=== PATIENT | female | born 1960 | race African-American/Black ===

== ENCOUNTER 2021-12-07 13:06 | Emergency (ER) | payer MEDICARE ==
[~2021-12-07] VITALS: Ht 167.6 cm; Wt 61.0 kg
[2021-12-07 13:14] VITALS: BP 138/77
[2021-12-07] MEDS ORDERED: TRAMADOL 50MG TABLET PO ONE (13:30)
[2021-12-07] MEDS ORDERED: IBUPROFEN 600MG TABLET PO ONE (15:00)
[2021-12-07] MEDS ORDERED: TRAMADOL 50MG TABLET PO NR (15:45)
[2021-12-07] MEDS ORDERED: METH-773 MT (16:32)
[2021-12-07] MEDS ORDERED: IBUP-2029 MT (16:32)
== END 2021-12-07 18:00 | disposition home or self-care (01) ==
LOC: ER 13:06
DX: M54.2 Cervicalgia (principal); M54.6 Pain in thoracic spine; R07.9 Chest pain, unspecified; M41.9 Scoliosis, unspecified; V43.52XA Car driver injured in collision with other type car in traffic accident, initial encounter; Y93.89 Activity, other specified; Y92.410 Unspecified street and highway as the place of occurrence of the external cause
CPT/HCPCS: 71045; 72070; 93005; 99285

== ENCOUNTER 2024-03-07 15:04 | Inpatient (IN) | payer MEDICARE ==
[~2024-03-07] VITALS: Ht 165.1 cm; Wt 78.9 kg
[~2024-03-07 15:04] MED LIST: IBUP-2029 MT; METH-773 MT
[2024-03-07 17:01] LABS: CLARITY URINE CLEAR (CLEAR); COLOR URINE YELLOW (YELLOW); GLUCOSE URINE 3+ (NEGATIVE); KETONES URINE NEGATIVE (NEGATIVE); LEUKOCYTE ESTERASE URINE NEGATIVE (NEGATIVE); NITRITE URINE NEGATIVE (NEGATIVE); OCCULT BLOOD URINE NEGATIVE (NEGATIVE); PH URINE 6.5 (4.5-8.0); PROTEIN URINE TRACE (NEGATIVE); SPECIFIC GRAVITY URINE 1.016 (1.005-1.030)
[2024-03-07 17:23] LABS: BASOPHILS % 0.1 % (0.0-2.0); DIFFERENTIAL COMMENT 0; EOSINOPHILS % 0.1 % (0.0-5.0); HEMOGLOBIN. 14.6 g/dL (12.0-16.0); LYMPHOCYTES % 7.8 % (20.0-50.0); MEAN CORPUSCULAR HEMOGLOBIN 34.1 pg (28.0-32.0); MEAN CORPUSCULAR VOLUME 100.2 fL (81.0-99.0); MEAN PLATELET VOLUME 7.2 fl (7.4-10.4); MONOCYTES % 5.4 % (2.0-8.0); NEUTROPHILS % 86.6 % (40.0-76.0); PLATELET 250 x1000/uL (130-400); RED BLOOD CELL COUNT 4.29 mill/uL (4.2-5.4); RED CELL DISTRIBUTION WIDTH 14.3 % (11.6-14.6); WHITE BLOOD COUNT 7.4 x1000/uL (4.5-11.0)
[2024-03-07 17:28] LABS: CHLORIDE 107 mEq/L (98-107); POTASSIUM 4.1 mEq/L (3.5-5.1); SODIUM 142 mEq/L (136-145)
[2024-03-07 17:29] LABS: CALCIUM 9.6 mg/dL (8.7-10.4); CARBON DIOXIDE 28 mEq/L (21-32)
[2024-03-07 17:33] LABS: BACTERIA URINE 2+; RBC URINE 0-2 /hpf (0-2); SQUAMOUS EPITHELIAL CELL URINE 1+ /lpf (RARE/1+); WBC URINE 0-2 /hpf (0-2)
[2024-03-07 17:34] LABS: GLUCOSE 110 mg/dL (70-105); INR 0.9; PARTIAL THROMBOPLASTIN TIME 21.5 sec (23.4-31.0); PROTHROMBIN TIME 10.1 sec (9.6-11.0); UREA NITROGEN BLOOD 14 mg/dL (9-23)
[2024-03-07 17:35] LABS: TROPONIN I HIGH SENSITIVITY 4 ng/L (3.0-34)
[2024-03-07 17:36] LABS: ALANINE AMINOTRANSFERASE 75 IU/L (10-49); ALBUMIN 3.9 g/dL (3.2-4.8); ASPARTATE AMINOTRANSFERASE 57 IU/L (<34)
[2024-03-07 17:37] LABS: BILIRUBIN TOTAL 0.5 mg/dL (0.1-1.0); PROTEIN TOTAL 6.4 g/dL (6.0-8.3)
[2024-03-07 17:59] LABS: BILIRUBIN DIRECT < 0.1 mg/dL (<=3.0); ETHANOL BLOOD < 10 mg/dL (<10)
[2024-03-07] MEDS ORDERED: NITROGLYCERIN 0.4MG TABLET SL SL PRN (20:45)
[2024-03-07] MEDS ORDERED: DOCUSATE SODIUM 100MG CAPSULE PO PRN (20:45)
[2024-03-07] MEDS ORDERED: ZOLPIDEM TARTRATE 5MG TABLET PO PRN (20:45)
[2024-03-07] MEDS ORDERED: ONDANSETRON HCL 4MG/2ML INJ IV PRN (20:45)
[2024-03-07] MEDS ORDERED: CLONIDINE 0.1MG TABLET PO PRN (20:45)
[2024-03-07] MEDS ORDERED: IPRATROPIUM/ALBUTEROL 0.5-3(2.5)MG/3ML NEB NEB PRN (20:45)
[2024-03-07] MEDS ORDERED: GUAIFENESIN 200MG/10ML SUGAR FREE UDC PO PRN (20:45)
[2024-03-07] MEDS ORDERED: ACETAMINOPHEN 325MG TABLET PO PRN (20:45)
[2024-03-07] MEDS: DEXT 5%/LACTATED RINGERS 1,000 ML IV SCH (20:45)
[2024-03-07] MEDS ORDERED: MAGNESIUM/ALUMINUM HYDROXIDE/SIMETHICONE 30ML UDC PO PRN (20:45)
[2024-03-07 21:12] LABS: IRON 89 ug/dL (50-170)
[2024-03-07 21:13] LABS: LDL CHOLESTEROL 112 mg/dL (5-100); TRIGLYCERIDE 163 mg/dL (0-150)
[2024-03-07 21:15] LABS: CHOLESTEROL 225 mg/dL (<200); HDL CHOLESTEROL 89 mg/dL (>65); TOTAL IRON BINDING CAPACITY 279 ug/dl (250-425)
[2024-03-07 21:18] LABS: FOLIC ACID (FOLATE) SERUM 17.53 ng/mL (>5.38); THYROID STIMULATING HORMONE 0.31 uIU/mL (0.55-4.78); VITAMIN B12 SERUM > 2000 pg/mL (211-911)
[2024-03-07 21:19] LABS: T4 FREE 1.66 ng/dL (0.89-1.76)
[2024-03-07] MEDS: AMLODIPINE 10MG TABLET PO SCH (21:47)
[2024-03-07] MEDS: FAMOTIDINE 20MG TABLET PO SCH (21:47)
[2024-03-07] MEDS: ENOXAPARIN 40MG/0.4ML SYR SUBCUT SCH (21:48)
[2024-03-07] MEDS: LEVETIRACETAM 500MG/5ML CUP PO SCH (21:52)
[2024-03-07 23:17] VITALS: BP 134/78; PULSE 94; RESP 18; TEMP 36.974
[2024-03-07] MEDS: DEXAMETHASONE 4MG/ML 1ML VIAL IV SCH (23:41)
[2024-03-08] VITALS: BP 134/78; PULSE 103; RESP 18; TEMP 37.00296; O2SAT 97
[2024-03-08 04:00] VITALS: BP 130/72; PULSE 83; RESP 14; TEMP 36.89184; O2SAT 97
[2024-03-08 07:42] LABS: CHLORIDE 109 mEq/L (98-107); POTASSIUM 4.1 mEq/L (3.5-5.1); SODIUM 143 mEq/L (136-145)
[2024-03-08 07:44] LABS: CARBON DIOXIDE 27 mEq/L (21-32)
[2024-03-08 07:50] LABS: CREATININE 0.7 mg/dL (0.6-1.0); GLUCOSE 143 mg/dL (70-105)
[2024-03-08 07:51] LABS: ALANINE AMINOTRANSFERASE 76 IU/L (10-49); ALBUMIN 4.4 g/dL (3.2-4.8); ASPARTATE AMINOTRANSFERASE 42 IU/L (<34); UREA NITROGEN BLOOD 12 mg/dL (9-23)
[2024-03-08 07:52] LABS: BILIRUBIN TOTAL 0.6 mg/dL (0.1-1.0); PHOSPHORUS 1.7 mg/dL (2.5-4.9)
[2024-03-08 07:53] LABS: PROTEIN TOTAL 6.8 g/dL (6.0-8.3)
[2024-03-08 08:00] VITALS: BP 147/87; PULSE 97; RESP 23; TEMP 36.83628; O2SAT 97
[2024-03-08] MEDS: ACETAMINOPHEN 325MG TABLET PO PRN (08:20)
[2024-03-08 08:41] LABS: BASOPHILS % 0.1 % (0.0-2.0); DIFFERENTIAL COMMENT 0; EOSINOPHILS % 0.1 % (0.0-5.0); HEMATOCRIT. 45.4 % (36.0-48.0); HEMOGLOBIN. 14.8 g/dL (12.0-16.0); LYMPHOCYTES % 13.1 % (20.0-50.0); MEAN CORPUSCULAR HEMOGLOBIN 32.7 pg (28.0-32.0); MEAN CORPUSCULAR HGB CONC 32.6 g/dL (31.0-37.0); MEAN CORPUSCULAR VOLUME 100.3 fL (81.0-99.0); MEAN PLATELET VOLUME 7.8 fl (7.4-10.4); MONOCYTES % 3.9 % (2.0-8.0); NEUTROPHILS % 82.8 % (40.0-76.0); PLATELET 253 x1000/uL (130-400); RED BLOOD CELL COUNT 4.52 mill/uL (4.2-5.4); RED CELL DISTRIBUTION WIDTH 14.6 % (11.6-14.6)
[2024-03-08 12:00] VITALS: BP 133/88; PULSE 95; RESP 21; TEMP 36.83628; O2SAT 97
[2024-03-08 16:00] VITALS: BP 130/82; PULSE 94; RESP 21; TEMP 36.83628; O2SAT 96
[2024-03-08 20:00] VITALS: BP 143/87; PULSE 106; RESP 19; TEMP 36.114; O2SAT 97
[2024-03-09] VITALS: BP 119/73; PULSE 85; RESP 13; TEMP 36.114; O2SAT 98
[2024-03-09 04:00] VITALS: BP 123/77; PULSE 76; RESP 9; TEMP 36.114; O2SAT 97
[2024-03-09 08:00] VITALS: BP 119/67; PULSE 78; RESP 10; TEMP 36.6696; O2SAT 98
[2024-03-09 12:00] VITALS: BP 121/71; PULSE 93; RESP 13; TEMP 36.83628; O2SAT 99
[2024-03-09 16:00] VITALS: BP 125/80; PULSE 80; RESP 14; TEMP 36.83628; O2SAT 98
[2024-03-09 19:52] VITALS: BP 145/85; PULSE 92; RESP 15; TEMP 36.3918
[2024-03-10] VITALS: PULSE 81; RESP 19; TEMP 36.55848; O2SAT 98
[2024-03-10 04:00] VITALS: BP 103/73; PULSE 81; RESP 20; TEMP 36.44736; O2SAT 99
[2024-03-10 08:00] VITALS: BP 120/85; PULSE 93; RESP 22; TEMP 36.55848; O2SAT 96
[2024-03-10 11:56] VITALS: BP 120/85; PULSE 93; TEMP 97.8; O2SAT 100
[2024-03-10 12:00] VITALS: BP 131/90; PULSE 95; RESP 15; TEMP 36.6696; TEMP 36.66960; O2SAT 98
== END 2024-03-10 14:20 | disposition home health service (06) | DRG 91 ==
LOC: ER 15:04 → EDBEDREQ 18:28 → 3WST 20:06
PROVIDERS: ADMIT Internal Medicine; ATTEND Internal Medicine
DX: G92.8 Other toxic encephalopathy (principal); G93.6 Cerebral edema; C71.9 Malignant neoplasm of brain, unspecified; I10 Essential (primary) hypertension; E11.9 Type 2 diabetes mellitus without complications; Z79.01 Long term (current) use of anticoagulants; Z92.21 Personal history of antineoplastic chemotherapy; Z79.4 Long term (current) use of insulin; Z92.3 Personal history of irradiation
CPT/HCPCS: 36415; 70553; 71045; 80048; 80053; 80061; 80076; 80320; 81003; 82607; 82746; 83036; 83540; 83550; 83735; 83880; 84100; 84439; 84443; 84484; 85025; 93005; 93306; 93970; 97161; 97166; 99285; J1100; J1650; J7121; G0480

== ENCOUNTER 2024-03-17 15:28 | Emergency (ER) | payer MEDICARE ==
[~2024-03-17] VITALS: Ht 167.6 cm; Wt 68.0 kg
[2024-03-17 15:36] VITALS: O2SAT 95
[2024-03-17] MEDS: LEVETIRACETAM 1000MG PREMIX 100 ML IV ONE (16:01)
[2024-03-17 16:22] LABS: HEMATOCRIT. 47.7 % (36.0-48.0); MEAN CORPUSCULAR HEMOGLOBIN 33.2 pg (28.0-32.0); MEAN CORPUSCULAR HGB CONC 33.6 g/dL (31.0-37.0); MEAN PLATELET VOLUME 7.4 fl (7.4-10.4); PLATELET 292 x1000/uL (130-400); RED BLOOD CELL COUNT 4.82 mill/uL (4.2-5.4); RED CELL DISTRIBUTION WIDTH 14.6 % (11.6-14.6); WHITE BLOOD COUNT 12.2 x1000/uL (4.5-11.0)
[2024-03-17 16:25] LABS: DIFFERENTIAL COMMENT 1
[2024-03-17 16:26] LABS: INR 0.9; PROTHROMBIN TIME 10.4 sec (9.6-11.0)
[2024-03-17 16:27] LABS: CHLORIDE 107 mEq/L (98-107); POTASSIUM 3.8 mEq/L (3.5-5.1); SODIUM 136 mEq/L (136-145)
[2024-03-17 16:28] LABS: CALCIUM 9.3 mg/dL (8.7-10.4); CARBON DIOXIDE 20 mEq/L (21-32)
[2024-03-17 16:33] LABS: CREATININE 0.9 mg/dL (0.6-1.0); GLUCOSE 153 mg/dL (70-105); UREA NITROGEN BLOOD 14 mg/dL (9-23)
[2024-03-17 16:56] LABS: PLATELET ESTIMATE NORMAL
[2024-03-17 18:27] VITALS: TEMP 36.50292
[2024-03-17 21:10] VITALS: BP 124/66; PULSE 82; RESP 16
== END 2024-03-17 21:16 | disposition home or self-care (01) ==
LOC: ER 15:28
DX: R55 Syncope and collapse (principal); G40.909 Epilepsy, unspecified, not intractable, without status epilepticus; E11.9 Type 2 diabetes mellitus without complications; Z88.0 Allergy status to penicillin; Z88.6 Allergy status to analgesic agent
CPT/HCPCS: 99285; 96365; 70450; 71045; 80048; 85025; 85610; 36415; 93005; J1953